=== PATIENT | male | born 1995 | race African-American/Black ===

== ENCOUNTER 2016-06-08 20:34 | Emergency (ER) | payer SELFPAY ==
[2016-06-08 19:03] LABS: URINE SOURCE CLEAN CATCH
[2016-06-08 19:07] LABS: URINE APPEARANCE CLOUDY; URINE BILIRUBIN NEG (NEG); URINE BLOOD NEG (NEG); URINE COLOR YELLOW; URINE GLUCOSE NEG (NEG); URINE KETONE TRACE (NEG); URINE LEUKOCYTE ESTERASE 2+ (NEG); URINE NITRATE NEG (NEG); URINE PH 5.5 (5-8); URINE PROTEIN NEG (NEG); URINE SPECIFIC GRAVITY 1.032 (1.003-1.035)
[2016-06-08 19:09] LABS: CULTURE INDICATED? YES; URINE BACTERIA AUWI NEG (NEGATIVE); URINE SQUAMOUS EPITHELIAL CELL NONE SEEN /[HPF]; UWBCS1 AUWI INNUM (0-5)
[2016-06-10 23:03] LABS: CHLAMYDIA TRACH Detected (Not Detected); N GONOR Detected (Not Detected)
== END 2016-06-08 20:35 | disposition home or self-care (01) ==
LOC: CED 20:34
PROVIDERS: Emergency Medicine
DX: N34.2 Other urethritis (principal)
CPT/HCPCS: 81003; 87086; 87491; 87591; 96372; 99283; J0696

== ENCOUNTER 2016-07-07 21:47 | Emergency (ER) | payer BC ==
--- NOTE | ~2016-07-07 | CR181 ---
[facility] A Service of [facility] & [facility] RADIOLOGY TEXT RESULTS PATIENT: SUSIE DUBOSE LOCATION: [facility] : [birth year] UNIT #: [id number] AGE: [address]: Vijay Barney DO SEX: M ORDER DR: [id number] [facility] [address]. [place], [place] [address] [id number] E MR#: [id number] Acc #: [id number] NAME: SUSIE DUBOSE : 1995 SEX: M STUDY DATE/TIME: 07/08/2016 00:30 UNIT: [facility] ROOM: STUDY DESCRIPTION: CR Lumbar Spine 2 or 3 Views Attending Physician: Vijay Barney D.O. Ordering Physician: Vijay Barney D.O. Primary Care Physician: Primary Care Physician No MEDICAL IMAGING REPORT This report is preliminary unless electronic signature is present EXAM Lumbar spine 07/08/2016 at 00:30 INDICATIONS Low back pain after fall 1 day ago. FINDINGS AP and lateral projections of the lumbar segment show good mineralization of both anterior and posterior elements. They are all anatomically normal without indication of fracture, dislocation, or malignant change of a sclerotic or lytic type. There is no congenital defect noted. The sacroiliac joints are normal. IMPRESSION Normal lumbar spine. Dictated by... Kishore Ceja Jr., M.D. THIS IS AN ELECTRONICALLY VERIFIED REPORT Kishore Ceja Jr., M.D. at 07/08/2016 5:55 AM SARKIS/dragan TD: 07/08/2016 03:07 JOB #: [id number] MEDICAL IMAGING REPORT Page 1 of 1 COPY
--- NOTE | ~2016-07-07 | CT71 ---
[facility] A Service of [facility] RADIOLOGY TEXT RESULTS PATIENT: SUSIE DUBOSE LOCATION: [facility] : 95 UNIT #: [id number] AGE: [address]: Vijay Barney DO SEX: M ORDER DR: [id number] [facility] [address] [place], [place] [address] [id number] E MR#: [id number] Acc #: [id number] NAME: SUSIE DUBOSE : 1995 SEX: M STUDY DATE/TIME: 07/07/2016 23:32 UNIT: [facility] ROOM: STUDY DESCRIPTION: CT Head Wo Contrast Attending Physician: Vijay Barney D.O. Ordering Physician: Vijay Barney D.O. Primary Care Physician: Primary Care Physician No MEDICAL IMAGING REPORT This report is preliminary unless electronic signature is present EXAM Head CT 07/07/2016 at 23:32 INDICATION Weakness, dizziness and headache today. Patient passed out. COMPARISON None. This CT exam was performed with one or more of the following radiation dose reduction techniques: automatic exposure control, adjustment of mA and/or kV according to patient size, and iterative reconstruction. FINDINGS Axial noncontrast images were obtained from the skull base to the vertex. Ventricular size and configuration are normal. There is no evidence of acute infarct or hemorrhage. There are no extra-axial fluid collections. No mass lesion or mass effect is seen. There are no skull fractures. IMPRESSION Normal noncontrast head CT. Dictated by... Kishore Ceja Jr., M.D. THIS IS AN ELECTRONICALLY VERIFIED REPORT Kishore Ceja Jr., M.D. at 07/08/2016 5:54 AM SARKIS/dragan TD: 07/08/2016 00:27 JOB #: [id number] [facility] A Service of [facility] RADIOLOGY TEXT RESULTS PATIENT: SUSIE DUBOSE LOCATION: [facility] : 95 UNIT #: [id number] AGE: [address]: Vijay Barney DO SEX: M ORDER DR: MEDICAL IMAGING REPORT Page 1 of 1 COPY
[2016-07-07 22:43] LABS: URINE SOURCE CLEAN CATCH
[2016-07-07 22:46] LABS: URINE APPEARANCE TURBID; URINE BILIRUBIN NEG (NEG); URINE BLOOD NEG (NEG); URINE COLOR YELLOW; URINE GLUCOSE NEG (NEG); URINE KETONE TRACE (NEG); URINE LEUKOCYTE ESTERASE NEG (NEG); URINE NITRATE NEG (NEG); URINE PH 7.5 (5-8); URINE PROTEIN NEG (NEG); URINE SPECIFIC GRAVITY 1.029 (1.003-1.035)
[2016-07-07 22:48] LABS: BASOPHIL% 0.8 % (0-2.5); EOSINOPHIL# 0.5 X10e3 (0-0.7); EOSINOPHIL% 11.2 % (0.0-7.0); HEMATOCRIT 37.9 % (38.0-50.0); HEMOGLOBIN 12.2 gm/dL (13.0-16.0); LYMPHOCYTE# 1.8 X10e3 (1.0-3.5); LYMPHOCYTE% 44.8 % (17.0-45.0); MEAN CELL VOLUME 69.9 FL (83-96); MEAN CORPUSCULAR HEMOGLOBIN 22.4 PG (28-34); MEAN CORPUSCULAR HGB CONC 32.1 g/dL (30-36); MEAN PLATELET VOLUME 7.4 FL (6.5-11.5); MONOCYTE# 0.3 X10e3 (0-1.0); MONOCYTE% 7.4 % (3.0-12.0); NEUTROPHIL# 1.5 X10e3 (1.5-7.1); NEUTROPHIL% 35.8 % (40-75); PLATELET COUNT 225 X10e3 (140-420); RED BLOOD COUNT 5.42 X10e (3.90-5.60); RED CELL DISTRIBUTION WIDTH 15.1 % (11.0-15.5); WHITE BLOOD COUNT 4.1 X10e3 (4.0-10.5)
[2016-07-07 22:51] LABS: DIFF IND NO
[2016-07-07 22:52] LABS: CULTURE INDICATED? NO
[2016-07-07 23:32] LABS: ALBUMIN SERUM 4.2 g/dL (3.5-5.0); BILIRUBIN, DIRECT 0.1 mg/dL (0.0-0.2); BILIRUBIN,INDIRECT 0.5 mg/dL (0.0-0.9); BILIRUBIN,TOTAL 0.6 mg/dL (0.2-2.0); CALCIUM SERUM 8.8 mg/dL (8.4-10.2); GLOM FILT RATE Estimated 124.2 mL/min (>60); POTASSIUM 3.3 mmol/L (3.5-5.1); PROTEIN TOTAL SERUM 6.9 g/dL (6.0-8.3)
== END 2016-07-08 01:47 | disposition home or self-care (01) ==
LOC: CED 21:47
PROVIDERS: Emergency Medicine
DX: R11.2 Nausea with vomiting, unspecified (principal); R42 Dizziness and giddiness; M54.5 Low back pain
CPT/HCPCS: 36415; 70450; 72100; 80048; 80076; 81003; 83690; 84484; 85025; 96361; 96374; 96375; 99284; J1885; J2405